=== PATIENT | male | born 1975 | race Caucasian/White ===

== ENCOUNTER → 2017-03-07 | Outpatient (REF) | payer OTHER ==
[~2017-03-07] MED LIST: /ADVA50050 INH; /AUGM875TA OR; /CIPR75TA OR; ACET65TA OR; ALLE25CA OR; ASTELIN NASAL SPRAY; ATEN25TA OR; LISI5TAB OR; OMEP20TA7 OR; SIMV20TA2 OR; TRIC145T19 OR
== END ==
LOC: M SFHCADAM 08:16
PROVIDERS: ATTEND Physician Assistant
DX: R16.0 Hepatomegaly, not elsewhere classified (principal); E78.1 Pure hyperglyceridemia; K76.0 Fatty (change of) liver, not elsewhere classified; I10 Essential (primary) hypertension; E55.9 Vitamin D deficiency, unspecified

== ENCOUNTER → 2017-03-12 | Outpatient (CLI) | payer OTHER ==
[2017-03-12 13:16] LABS: ALBUMIN 3.8 GM/DL (3.2-5.2); ALBUMIN/GLOBULIN RATIO 1.15 (1.00-1.93); ALKALINE PHOSPHATASE 70 U/L (45-117); ALT/SGPT 34 U/L (12-78); ANION GAP 7 MEQ/L (8-16); AST/SGOT 20 U/L (15-37); BILIRUBIN,TOTAL 0.5 MG/DL (0.2-1.0); BLOOD UREA NITROGEN 10 MG/DL (7-18); CALCIUM LEVEL 8.7 MG/DL (8.5-10.1); CARBON DIOXIDE LEVEL 26 MEQ/L (21-32); CHLORIDE LEVEL 108 MEQ/L (98-107); CHOLESTEROL LEVEL 215 MG/DL (<200); CREATININE FOR GFR 0.89 MG/DL (0.70-1.30); GLOMERULAR FILTRATION RATE > 60.0 (>60); GLUCOSE, FASTING 99 MG/DL (70-105); POTASSIUM SERUM 3.8 MEQ/L (3.5-5.1); SODIUM LEVEL 141 MEQ/L (136-145); TOTAL PROTEIN 7.1 GM/DL (6.4-8.2); TRIGLYCERIDES LEVEL 506 MG/DL (<150)
[2017-03-12 13:47] LABS: MEAN CORPUSCULAR HEMOGLOBIN 33.4 pg (27.0-33.0); MEAN CORPUSCULAR HGB CONC 34.3 g/dl (32.0-36.5); MEAN CORPUSCULAR VOLUME 97.6 fl (80.0-96.0); RED CELL DISTRIBUTION WIDTH 12.8 % (11.5-14.5); WHITE BLOOD COUNT 7.2 K/mm3 (4.0-10.0)
== END ==
LOC: M WUC 09:19
PROVIDERS: ATTEND Physician Assistant
DX: E78.1 Pure hyperglyceridemia (principal); R16.0 Hepatomegaly, not elsewhere classified; K76.0 Fatty (change of) liver, not elsewhere classified; I10 Essential (primary) hypertension; E55.9 Vitamin D deficiency, unspecified

== ENCOUNTER → 2017-04-02 | Outpatient (CLI) | payer OTHER ==
--- NOTE | 2017-04-02 09:00 | REP ---
Clinical: Hepatomegaly. Technique: Real time duran scale ultrasound examination using curved array transducer. Findings: The liver is mildly enlarged and demonstrates subtle increased parenchymal echogenicity without focal hepatic lesion or abnormality identified. Liver measures 24.2 x 12.3 x 17.6 cm. The pancreas is incompletely evaluated due to interposed bowel gas but visualized portions appear normal. The gallbladder is normal and without gallstones, wall thickening, or pericholecystic fluid. No biliary ductal dilatation is appreciated and the common bile duct measures 4.6 mm diameter. Right kidney is normal in reniform shape and echogenicity without hydronephrosis and measures 12.8 x 4.5 x 6.5 cm. No ascites. Impression: Mild hepatomegaly and fatty infiltration to the liver without focal hepatic lesion identified.
== END ==
LOC: M WHC 07:48
PROVIDERS: ATTEND Physician Assistant
DX: R16.0 Hepatomegaly, not elsewhere classified (principal); K76.0 Fatty (change of) liver, not elsewhere classified

== ENCOUNTER → 2018-10-07 | Outpatient (CLI) | payer OTHER | LOC: M OUTALCOH 09:26 | DX: F10.20 Alcohol dependence, uncomplicated (principal) ==

== ENCOUNTER 2018-10-19 15:27 | Emergency (ER) | payer OTHER | END 2018-10-19 16:02 | disposition home or self-care (01) | LOC: M ED 15:27 | DX: Z76.0 Encounter for issue of repeat prescription (principal); J44.9 Chronic obstructive pulmonary disease, unspecified; K21.9 Gastro-esophageal reflux disease without esophagitis; F32.9 Major depressive disorder, single episode, unspecified; Z72.0 Tobacco use; Z79.899 Other long term (current) drug therapy | CPT/HCPCS: 99282 ==

== ENCOUNTER → 2018-11-11 | Outpatient (RCR) | payer OTHER ==
[~2018-11-11] MED LIST changes: +FLUO20CA19 PO; +FLUO20CA8 PO
== END ==
LOC: M OUTALCOH 10-16 09:38
PROVIDERS: ATTEND Psychiatry & Neurology Psychiatry
DX: F10.20 Alcohol dependence, uncomplicated (principal); F17.200 Nicotine dependence, unspecified, uncomplicated

== ENCOUNTER 2018-12-11 15:00 | Outpatient (RCR) | payer OTHER | END 2018-12-12 | LOC: M OUTALCOH 15:00 | PROVIDERS: ATTEND Psychiatry & Neurology Psychiatry | DX: F10.20 Alcohol dependence, uncomplicated (principal); F17.200 Nicotine dependence, unspecified, uncomplicated ==

== ENCOUNTER 2019-01-08 10:20 | Outpatient (RCR) | payer OTHER, SELFPAY | END 2019-01-09 | LOC: M OUTALCOH 10:20 | PROVIDERS: ATTEND Psychiatry & Neurology Psychiatry | DX: F10.20 Alcohol dependence, uncomplicated (principal); F17.200 Nicotine dependence, unspecified, uncomplicated ==

== ENCOUNTER → 2019-02-04 | Outpatient (CLI) | payer OTHER ==
[2019-02-04 09:54] LABS: HEMATOCRIT 45.9 % (42.0-52.0); HEMOGLOBIN 15.7 g/dl (13.5-17.5); MEAN CORPUSCULAR HEMOGLOBIN 31.5 pg (27.0-33.0); MEAN CORPUSCULAR HGB CONC 34.2 g/dl (32.0-36.5); MEAN CORPUSCULAR VOLUME 92.2 fl (80.0-96.0); PLATELET COUNT, AUTOMATED 262 10^3/uL (150-450); RED BLOOD COUNT 4.98 10^6/uL (4.30-6.10); WHITE BLOOD COUNT 10.2 10^3/uL (4.0-10.0)
[2019-02-04 10:27] LABS: ALBUMIN 3.8 GM/DL (3.2-5.2); ALT/SGPT 18 U/L (12-78); BILIRUBIN,TOTAL 0.3 MG/DL (0.2-1.0); BLOOD UREA NITROGEN 13 MG/DL (7-18); CALCIUM LEVEL 9.3 MG/DL (8.5-10.1); CARBON DIOXIDE LEVEL 28 MEQ/L (21-32); CHLORIDE LEVEL 108 MEQ/L (98-107); CHOLESTEROL LEVEL 241 MG/DL (<200); CHOLESTEROL RISK RATIO 8.925 (<5); CREATININE FOR GFR 0.92 MG/DL (0.70-1.30); FREE T4 0.87 NG/DL (0.76-1.46); GLOMERULAR FILTRATION RATE > 60.0 (>60); GLUCOSE, FASTING 97 MG/DL (70-100); HDL CHOLESTEROL 27 MG/DL (>40); NON-HDL-C 214 MG/DL; POTASSIUM SERUM 4.7 MEQ/L (3.5-5.1); SODIUM LEVEL 141 MEQ/L (136-145); TOTAL PROTEIN 7.1 GM/DL (6.4-8.2); TRIGLYCERIDES LEVEL 413 MG/DL (<150)
[2019-02-04 10:29] LABS: FOLATE 11.1 NG/ML; VITAMIN B12 LEVEL 400 PG/ML
== END ==
LOC: M WUC 08:03
PROVIDERS: ATTEND Physician Assistant
DX: K21.9 Gastro-esophageal reflux disease without esophagitis (principal); F17.200 Nicotine dependence, unspecified, uncomplicated; E78.2 Mixed hyperlipidemia

== ENCOUNTER 2019-02-05 16:00 | Outpatient (RCR) | payer OTHER, SELFPAY ==
[~2019-02-05 16:00] MED LIST changes: -/ADVA50050 INH; +ADVA1AER2 INH
== END 2019-02-09 ==
LOC: M OUTALCOH 16:00
PROVIDERS: ATTEND Psychiatry & Neurology Psychiatry
DX: F10.20 Alcohol dependence, uncomplicated (principal); F17.200 Nicotine dependence, unspecified, uncomplicated

== ENCOUNTER → 2019-02-06 | Outpatient (REF) | payer OTHER, SELFPAY ==
[2019-02-08 00:07] LABS: ANA (HEP2) Negative (.); Lyme Disease IgG/IgM Antibodie <0.91 ISR (0.00-0.90); Lyme Disease IgM Ab Quantitati <0.80 index (0.00-0.79)
== END ==
LOC: M SFHCADAM 07:59
PROVIDERS: ATTEND Physician Assistant
DX: M65.4 Radial styloid tenosynovitis [de Quervain] (principal)

== ENCOUNTER 2019-03-05 10:50 | Outpatient (RCR) | payer OTHER, SELFPAY | END 2019-03-11 | LOC: M OUTALCOH 10:50 | PROVIDERS: ATTEND Psychiatry & Neurology Psychiatry | DX: F10.20 Alcohol dependence, uncomplicated (principal); F17.200 Nicotine dependence, unspecified, uncomplicated ==

== ENCOUNTER 2019-03-31 14:55 | Outpatient (RCR) | payer OTHER, SELFPAY | END 2019-04-11 | LOC: M OUTALCOH 14:55 | PROVIDERS: ATTEND Psychiatry & Neurology Psychiatry | DX: F10.20 Alcohol dependence, uncomplicated (principal); F17.200 Nicotine dependence, unspecified, uncomplicated ==

== ENCOUNTER 2019-05-05 16:00 | Outpatient (RCR) | payer OTHER, SELFPAY | END 2019-05-11 | LOC: M OUTALCOH 16:00 | PROVIDERS: ATTEND Psychiatry & Neurology Psychiatry | DX: F10.20 Alcohol dependence, uncomplicated (principal); F17.200 Nicotine dependence, unspecified, uncomplicated ==

== ENCOUNTER 2019-06-04 13:53 | Outpatient (RCR) | payer OTHER, SELFPAY | END 2019-06-11 | LOC: M OUTALCOH 13:53 | PROVIDERS: ATTEND Psychiatry & Neurology Psychiatry | DX: F10.20 Alcohol dependence, uncomplicated (principal); F17.200 Nicotine dependence, unspecified, uncomplicated ==

== ENCOUNTER 2019-06-20 13:55 | Outpatient (RCR) | payer OTHER, SELFPAY | END 2019-07-12 | LOC: M OUTALCOH 13:55 | PROVIDERS: ATTEND Psychiatry & Neurology Psychiatry | DX: F10.20 Alcohol dependence, uncomplicated (principal); F17.200 Nicotine dependence, unspecified, uncomplicated ==

== ENCOUNTER 2019-08-01 14:34 | Outpatient (RCR) | payer OTHER, SELFPAY | END 2019-08-11 | LOC: M OUTALCOH 14:34 | PROVIDERS: ATTEND Psychiatry & Neurology Psychiatry | DX: F10.20 Alcohol dependence, uncomplicated (principal); F17.200 Nicotine dependence, unspecified, uncomplicated ==

== ENCOUNTER 2019-09-03 12:52 | Outpatient (RCR) | payer OTHER, SELFPAY | END 2019-09-11 | LOC: M OUTALCOH 12:52 | PROVIDERS: ATTEND Psychiatry & Neurology Psychiatry | DX: F10.20 Alcohol dependence, uncomplicated (principal); F17.200 Nicotine dependence, unspecified, uncomplicated ==

== ENCOUNTER 2019-10-15 13:05 | Outpatient (RCR) | payer OTHER, SELFPAY ==
[~2019-10-15 13:05] MED LIST changes: +FLUO20CA20 PO; -FLUO20CA8 PO
== END 2019-11-11 ==
LOC: M OUTALCOH 13:05
PROVIDERS: ATTEND Psychiatry & Neurology Psychiatry
DX: F10.20 Alcohol dependence, uncomplicated (principal); F17.200 Nicotine dependence, unspecified, uncomplicated

== ENCOUNTER 2019-12-02 11:00 | Outpatient (RCR) | payer OTHER, SELFPAY ==
[~2019-12-02 11:00] MED LIST changes: -FLUO20CA19 PO; +FLUO20CA22 PO
== END 2019-12-12 ==
LOC: M OUTALCOH 11:00
PROVIDERS: ATTEND Psychiatry & Neurology Psychiatry
DX: F10.20 Alcohol dependence, uncomplicated (principal); F17.200 Nicotine dependence, unspecified, uncomplicated

== ENCOUNTER → 2020-09-23 | Outpatient (CLI) | payer MEDICAID, OTHER, SELFPAY ==
[~2020-09-23] MED LIST changes: +IBUP-1114 PO; +OMEP40CA97 PO
== END ==
LOC: M LABSMTC 11:50
PROVIDERS: ATTEND Anesthesiology
DX: Z01.812 Encounter for preprocedural laboratory examination (principal); Z20.828 Contact with and (suspected) exposure to other viral communicable diseases

== ENCOUNTER → 2021-04-20 | Outpatient (REF) | payer MEDICAID, OTHER ==
[2021-04-20 16:25] LABS: APPEARANCE, URINE HAZY (CLEAR); BACTERIA, URINE AUTO 2+ (NEGATIVE); BILIRUBIN, URINE AUTO NEGATIVE (NEGATIVE); BLOOD, URINE BLOOD 1+ (NEGATIVE); COLOR, URINE YELLOW (YELLOW); GLUCOSE, URINE (UA) AUTO NEGATIVE (NEGATIVE); KETONE, URINE AUTO NEGATIVE (NEGATIVE); LEUKOCYTE ESTERASE, URINE AUTO 3+ (NEGATIVE); NITRITE, URINE AUTO NEGATIVE (NEGATIVE); PROTEIN, URINE AUTO NEGATIVE (NEGATIVE); RBC, URINE AUTO 8 /HPF (0-3); SPECIFIC GRAVITY URINE AUTO 1.016 (1.002-1.035); SQUAMOUS EPITHELIAL CELL UR AU 0 /HPF (0-6); UROBILINOGEN, URINE AUTO 0.2 mg/dL (0.0-2.0); WBC, URINE AUTO 79 /HPF (0-3)
[2021-04-20 16:31] LABS: BASO # 0.1 10^3/uL (0.0-0.2); BASO % 0.7 % (0.0-1.0); EOS # 0.2 10^3/uL (0.0-0.5); EOS % 2.1 % (0.0-3.0); HEMATOCRIT 52.9 % (42.0-52.0); HEMOGLOBIN 17.2 g/dl (13.5-17.5); LYMPH # 4.4 10^3/uL (1.5-5.0); LYMPH % 40.1 % (24.0-44.0); MEAN CORPUSCULAR HEMOGLOBIN 29.2 pg (27.0-33.0); MEAN CORPUSCULAR HGB CONC 32.5 g/dl (32.0-36.5); MEAN CORPUSCULAR VOLUME 89.8 fl (80.0-96.0); MONO # 0.8 10^3/uL (0.0-0.8); MONO % 7.1 % (2.0-8.0); NEUTROPHILS # 5.4 10^3/uL (1.5-8.5); NEUTROPHILS % 49.2 % (36.0-66.0); PLATELET COUNT, AUTOMATED 293 10^3/uL (150-450); RED BLOOD COUNT 5.89 10^6/uL (4.30-6.10); WHITE BLOOD COUNT 10.9 10^3/uL (4.0-10.0)
[2021-04-20 17:28] LABS: ALBUMIN 3.8 GM/DL (3.2-5.2); ALT/SGPT 30 U/L (12-78); BILIRUBIN,TOTAL 0.3 MG/DL (0.2-1.0); BLOOD UREA NITROGEN 15 MG/DL (7-18); CALCIUM LEVEL 8.7 MG/DL (8.5-10.1); CARBON DIOXIDE LEVEL 28 MEQ/L (21-32); CHLORIDE LEVEL 107 MEQ/L (98-107); CHOLESTEROL LEVEL 195 MG/DL (<200); CREATININE FOR GFR 0.82 MG/DL (0.70-1.30); GLOMERULAR FILTRATION RATE > 60.0 (>60); GLUCOSE, FASTING 113 MG/DL (70-100); HDL CHOLESTEROL 25 MG/DL (>40); NON-HDL-C 170 MG/DL; POTASSIUM SERUM 4.2 MEQ/L (3.5-5.1); SODIUM LEVEL 140 MEQ/L (136-145); TOTAL PROTEIN 7.7 GM/DL (6.4-8.2); TRIGLYCERIDES LEVEL 418 MG/DL (<150)
[2021-04-20 17:32] LABS: VITAMIN B12 LEVEL 800 PG/ML
[2021-04-20 17:45] LABS: FOLATE 9.7 NG/ML
[2021-04-20 18:12] LABS: HIV 1&2 SCREEN CENTAUR NEGATIVE (NEGATIVE)
== END ==
LOC: M SFHCADAM 14:10
PROVIDERS: ATTEND Physician Assistant
DX: F10.21 Alcohol dependence, in remission (principal); D45 Polycythemia vera; I10 Essential (primary) hypertension; R30.0 Dysuria; Z11.3 Encounter for screening for infections with a predominantly sexual mode of transmission; E78.2 Mixed hyperlipidemia; K21.9 Gastro-esophageal reflux disease without esophagitis

== ENCOUNTER → 2021-05-19 | Outpatient (REF) | payer OTHER ==
[~2021-05-19] MED LIST changes: +OMEP40CA4 PO; -OMEP40CA97 PO
[2021-05-19 20:05] LABS: APPEARANCE, URINE CLOUDY (CLEAR); BACTERIA, URINE AUTO NEGATIVE (NEGATIVE); BILIRUBIN, URINE AUTO NEGATIVE (NEGATIVE); BLOOD, URINE BLOOD 2+ (NEGATIVE); COLOR, URINE YELLOW (YELLOW); GLUCOSE, URINE (UA) AUTO NEGATIVE (NEGATIVE); KETONE, URINE AUTO NEGATIVE (NEGATIVE); LEUKOCYTE ESTERASE, URINE AUTO 3+ (NEGATIVE); MUCUS, URINE SMALL (NEGATIVE); NITRITE, URINE AUTO NEGATIVE (NEGATIVE); PROTEIN, URINE AUTO 1+ mg/dL (NEGATIVE); RBC, URINE AUTO 78 /HPF (0-3); SPECIFIC GRAVITY URINE AUTO 1.023 (1.002-1.035); SQUAMOUS EPITHELIAL CELL UR AU 0 /HPF (0-6); UROBILINOGEN, URINE AUTO 0.2 mg/dL (0.0-2.0); WBC, URINE AUTO TNTC /HPF (0-3)
== END ==
LOC: M SMT 17:00
PROVIDERS: ATTEND Urology
DX: N30.00 Acute cystitis without hematuria (principal)

== ENCOUNTER → 2021-06-01 | Outpatient (CLI) | payer OTHER ==
--- NOTE | 2021-06-01 15:45 | REP ---
INDICATION: ACUTE CYSTITIS WITHOUT HEMATURIA. COMPARISON: Comparison CT study abdomen and pelvis June 24, 2013.. TECHNIQUE: Helical scanning is acquired and 3 mm axial images re-formatted. Coronal and sagittal MPR images are generated. The CT contrast enhancement dose is 100 mL of intravenous Isovue 370. FINDINGS: Preliminary digital pan devulcanizer radiograph shows an unremarkable bowel gas pattern. The lung bases are clear on axial CT images. There is an old healed rib fracture on the right posteriorly. There is mild diffuse fatty infiltration of the liver. No focal liver lesion is seen. Some fat sparing is seen near the gallbladder. Gallbladder is otherwise unremarkable. No pancreatic abnormality is seen. Normal adrenal glands are observed bilaterally. The kidneys enhance symmetrically and are morphologically intact on dual phase post-contrast images. No renal mass or hydronephrosis is seen. No intrarenal calculus is observed. A normal appendix is noted retrocecal in position. There is left colonic diverticulosis without CT evidence of diverticulitis. There is a small air bubble in the urinary bladder consistent with recent instrumentation. Urinary bladder is otherwise unremarkable. Prostate seminal vesicles intact is no abdominal wall defect is seen. IMPRESSION: Fatty infiltration of the liver. Left colonic diverticulosis without CT evidence of diverticulitis. There is a small air bubble in the urinary bladder consistent with recent instrumentation. Otherwise no urinary tract abnormality. <Electronically signed by Luis Angel Harrell > 06/01/21 [id number]
== END ==
LOC: M PLAIMG 14:18
PROVIDERS: ATTEND Urology
DX: N30.00 Acute cystitis without hematuria (principal); K76.0 Fatty (change of) liver, not elsewhere classified; K57.30 Diverticulosis of large intestine without perforation or abscess without bleeding

== ENCOUNTER → 2021-06-27 | Outpatient (REF) | payer OTHER ==
[2021-06-27 18:54] LABS: APPEARANCE, URINE CLOUDY (CLEAR); BACTERIA, URINE AUTO NEGATIVE (NEGATIVE); BILIRUBIN, URINE AUTO NEGATIVE (NEGATIVE); BLOOD, URINE BLOOD 2+ (NEGATIVE); CALCIUM OXALATE CRYSTALS SMALL; COLOR, URINE YELLOW (YELLOW); GLUCOSE, URINE (UA) AUTO NEGATIVE (NEGATIVE); KETONE, URINE AUTO NEGATIVE (NEGATIVE); LEUKOCYTE ESTERASE, URINE AUTO 3+ (NEGATIVE); MUCUS, URINE SMALL (NEGATIVE); NITRITE, URINE AUTO NEGATIVE (NEGATIVE); PROTEIN, URINE AUTO 1+ mg/dL (NEGATIVE); RBC, URINE AUTO 19 /HPF (0-3); SPECIFIC GRAVITY URINE AUTO 1.025 (1.002-1.035); SQUAMOUS EPITHELIAL CELL UR AU 1 /HPF (0-6); UROBILINOGEN, URINE AUTO 0.2 mg/dL (0.0-2.0); WBC, URINE AUTO TNTC /HPF (0-3)
== END ==
LOC: M SMT 17:00
PROVIDERS: ATTEND Urology
DX: R31.29 Other microscopic hematuria (principal)

== ENCOUNTER → 2021-07-16 | Outpatient (CLI) | payer OTHER | LOC: M LABSMTC 09:29 | PROVIDERS: ATTEND Anesthesiology | DX: Z01.812 Encounter for preprocedural laboratory examination (principal); Z20.822 Contact with and (suspected) exposure to COVID-19 ==

== ENCOUNTER 2021-07-20 09:27 | Day surgery (SDC) | payer OTHER ==
[~2021-07-20] VITALS: Ht 172.7 cm; Wt 143.3 kg
[~2021-07-20 09:27] MED LIST changes: +NS 1,000 ML IV ONE
[2021-07-20] MEDS ORDERED: propofoL 200 MG/20 ML VIAL As Ordered ONE ×2 (10:57→11:01)
[2021-07-20] MEDS ORDERED: LIDOCAINE 2% 100MG/5ML SDV (FOR ANES.) As Ordered ONE (10:58)
--- NOTE | 2021-07-20 11:22 | ROOR ---
Patient Name: aDmi Escobedo Procedure Date: 07/20/2021 10:45 AM Date of : 1975 Age: 45 Room: [facility] Gender: Male Note Status: Finalized Procedure: Colonoscopy Indications: Colovesical fistula Providers: Sarabjit Julien MD Referring MD: Ji Hou MD Requesting Provider: Medicines: Monitored Anesthesia Care Complications: No immediate complications. Procedure: Pre-Anesthesia Assessment: - Prior to the procedure, a History and Physical was performed, and patient medications and allergies were reviewed. The patient is competent. The risks and benefits of the procedure and the sedation options and risks were discussed with the patient. All questions were answered and informed consent was obtained. Patient identification and proposed procedure were verified by the physician, the nurse and the tong hooker in the procedure room. Mental Status Examination: alert and oriented. Airway Examination: normal oropharyngeal airway and neck mobility. Prophylactic Antibiotics: The patient does not require prophylactic antibiotics. Prior Anticoagulants: The patient has taken no previous anticoagulant or antiplatelet agents. ASA Grade Assessment: III - A patient with severe systemic disease. After reviewing the risks and benefits, the patient was deemed in satisfactory condition to undergo the procedure. The anesthesia plan was to use monitored anesthesia care (MAC). Immediately prior to administration of medications, the patient was re-assessed for adequacy to receive sedatives. The heart rate, respiratory rate, oxygen saturations, blood pressure, adequacy of pulmonary ventilation, and response to care were monitored throughout the procedure. The physical status of the patient was re-assessed after the procedure. The Colonoscope was introduced through the anus with the intention of advancing to the cecum. The scope was advanced to the sigmoid colon before the procedure was aborted. Medications were given. The colonoscopy was unusually difficult due to bowel stenosis. The patient tolerated the procedure well. The quality of the bowel preparation was good. Findings: The perianal and digital rectal examinations were normal. Multiple medium-mouthed diverticula were found in the sigmoid colon. A benign-appearing, intrinsic severe stenosis measuring of unknown length was found at 40 cm proximal to the anus and was non-traversed. Impression: - Diverticulosis in the sigmoid colon. - Stricture at 40 cm proximal to the anus. - No specimens collected. Recommendation: - Perform a barium enema today. 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 All rights reserved. The codes documented in this report are preliminary and upon change management administrator review may be revised to meet current compliance requirements. Sarabjit Julien MD Sarabjit Julien MD 07/20/2021 11:22:17 AM Electronically signed by Sarabjit Julien MD Number of Addenda: 0 Note Initiated On: 07/20/2021 10:45 AM Estimated Blood Loss: Estimated blood loss: none.
[2021-07-20 11:40] VITALS: BP 167/94
[2021-07-20] MEDS ORDERED: GASTROGRAFIN SOLUTION 30ML (Q9963) As Ordered ONE ×2 (13:39→13:52)
== END 2021-07-20 13:32 | disposition home or self-care (01) ==
LOC: M OPP 09:27
PROVIDERS: ATTEND Surgery
DX: K56.699 Other intestinal obstruction unspecified as to partial versus complete obstruction (principal); N32.1 Vesicointestinal fistula; K57.30 Diverticulosis of large intestine without perforation or abscess without bleeding; R10.84 Generalized abdominal pain; F17.210 Nicotine dependence, cigarettes, uncomplicated; K76.0 Fatty (change of) liver, not elsewhere classified; Z79.899 Other long term (current) drug therapy
CPT/HCPCS: 45378; Q9963

== ENCOUNTER → 2021-08-09 | Outpatient (CLI) | payer OTHER ==
--- NOTE | 2021-08-08 10:22 | REP ---
INDICATION: DVRTCLOS OF LG INT W/O PERFORATION / ABSCESS. COMPARISON: None. FINDINGS: KUB shows the intestinal gas pattern to be nonspecific. The organ silhouettes insofar as delineated are unremarkable. There is no evidence of free intraperitoneal air. The stool pattern is unremarkable. IMPRESSION: Nonspecific. <Electronically signed by Josue Hutchinson > 08/08/21 [id number]
[~2021-08-09] MED LIST changes: +LIQUID POLIBAR PLUS 105% w/v 750ML BTL As Ordered ONE; -NS 1,000 ML IV ONE
--- NOTE | 2021-08-09 17:43 | REP ---
INDICATION: DVRTCLOS OF LG INT W/O PERFORATION/ABSCESS. COMPARISON: None TECHNIQUE: The procedure was performed by Georgiana Keating RUST, under the direct supervision of Dr. Harrell. The images were reviewed with Dr. Dr. Harrell. Liquid barium was instilled into the colon in retrograde flow in order to perform a single contrast barium enema. FINDINGS: The sole tier film shows no organomegaly, or pathological masses. The intestinal gas pattern is unremarkable. The colon is normal in position and contour. Contrast is visualized in the bladder confirming the presence of a colovesical fistula. There is diverticulosis of the sigmoid colon with mild luminal narrowing, without any mass like findings. There is free flow of contrast to the cecum. There is diverticula of the ascending colon. The colonic mucosal pattern is normal in course and caliber. There is no annular constricting lesion identified. There are no polypoid masses identified. The appendix is visualized. IMPRESSION: 1. Contrast is visualized within the bladder confirming a colovesical fistula. 2. Sigmoid diverticulosis with mild luminal narrowing. 3. Diverticula of the ascending colon. 0.5 minutes of fluoroscopy time was utilized for this procedure. Some fluoroscopic images are performed with last image hold technology. These images require no additional radiation <Electronically signed by Georgiana Keating > 08/09/21 [id number] <Electronically signed by Luis Angel Harrell > 08/09/21 [id number]
== END ==
LOC: M RAD 08-08 09:41
PROVIDERS: ATTEND Surgery
DX: K57.30 Diverticulosis of large intestine without perforation or abscess without bleeding (principal)

== ENCOUNTER → 2021-08-30 | Outpatient (REF) | payer OTHER ==
[~2021-08-30] MED LIST changes: -LIQUID POLIBAR PLUS 105% w/v 750ML BTL As Ordered ONE
[2021-08-30 17:43] LABS: BASO # 0.1 10^3/uL (0.0-0.2); BASO % 0.7 % (0.0-1.0); EOS # 0.2 10^3/uL (0.0-0.5); EOS % 2.1 % (0.0-3.0); HEMATOCRIT 51.7 % (42.0-52.0); HEMOGLOBIN 17.1 g/dl (13.5-17.5); LYMPH % 40.4 % (24.0-44.0); MEAN CORPUSCULAR HEMOGLOBIN 29.8 pg (27.0-33.0); MEAN CORPUSCULAR HGB CONC 33.1 g/dl (32.0-36.5); MEAN CORPUSCULAR VOLUME 90.1 fl (80.0-96.0); MONO # 0.7 10^3/uL (0.0-0.8); MONO % 7.2 % (2.0-8.0); NEUTROPHILS # 4.8 10^3/uL (1.5-8.5); NEUTROPHILS % 49.1 % (36.0-66.0); PLATELET COUNT, AUTOMATED 284 10^3/uL (150-450); RED BLOOD COUNT 5.74 10^6/uL (4.30-6.10); WHITE BLOOD COUNT 9.8 10^3/uL (4.0-10.0)
[2021-08-30 18:07] LABS: APPEARANCE, URINE CLOUDY (CLEAR); BACTERIA, URINE AUTO 1+ (NEGATIVE); BILIRUBIN, URINE AUTO NEGATIVE (NEGATIVE); BLOOD, URINE BLOOD 1+ (NEGATIVE); COLOR, URINE YELLOW (YELLOW); GLUCOSE, URINE (UA) AUTO NEGATIVE (NEGATIVE); KETONE, URINE AUTO NEGATIVE (NEGATIVE); LEUKOCYTE ESTERASE, URINE AUTO 3+ (NEGATIVE); MUCUS, URINE SMALL (NEGATIVE); NITRITE, URINE AUTO NEGATIVE (NEGATIVE); PROTEIN, URINE AUTO 1+ mg/dL (NEGATIVE); RBC, URINE AUTO 19 /HPF (0-3); SPECIFIC GRAVITY URINE AUTO 1.024 (1.002-1.035); SQUAMOUS EPITHELIAL CELL UR AU 0 /HPF (0-6); UROBILINOGEN, URINE AUTO 0.2 mg/dL (0.0-2.0); WBC, URINE AUTO TNTC /HPF (0-3)
[2021-08-30 18:08] LABS: ALBUMIN 3.8 GM/DL (3.2-5.2); ALT/SGPT 22 U/L (12-78); BILIRUBIN,TOTAL 0.3 MG/DL (0.2-1.0); BLOOD UREA NITROGEN 15 MG/DL (7-18); CARBON DIOXIDE LEVEL 30 MEQ/L (21-32); CHLORIDE LEVEL 106 MEQ/L (98-107); CREATININE FOR GFR 0.84 MG/DL (0.70-1.30); GLOMERULAR FILTRATION RATE > 60.0 (>60); GLUCOSE, FASTING 74 MG/DL (70-100); POTASSIUM SERUM 4.4 MEQ/L (3.5-5.1); SODIUM LEVEL 141 MEQ/L (136-145)
== END ==
LOC: M SFHCADAM 11:42
PROVIDERS: ATTEND Physician Assistant
DX: Z01.818 Encounter for other preprocedural examination (principal); R30.0 Dysuria; N32.1 Vesicointestinal fistula

== ENCOUNTER → 2021-09-08 | Outpatient (CLI) | payer OTHER | LOC: M LABSMTC 09:36 | PROVIDERS: ATTEND Anesthesiology | DX: Z01.812 Encounter for preprocedural laboratory examination (principal); Z20.822 Contact with and (suspected) exposure to COVID-19 ==

== ENCOUNTER 2021-09-13 06:07 | Inpatient (IN) | payer OTHER ==
[~2021-09-13] VITALS: Ht 170.2 cm; Wt 143.3 kg
[~2021-09-13 06:07] MED LIST changes: +ALVIMOPAN 12 MG CAPSULE (ENTEREG) PO ONE; +ENOXAPARIN 40MG/0.4ML SYRINGE (J1650 PER 10MG) SC ONE; +FLUO-96 PO; -FLUO20CA20 PO; +LIDOCAINE 1% MDV 20ML VIAL SQ PRN; +LR 1,000 ML IV ONE; +cefoTEtan DISODIUM 2 GM in D5W MINI-BAG PLUS 50 ML IV ONE
[2021-09-13] MEDS ORDERED: BUPIVACAINE HCL 0.25% 30ML VIAL As Ordered ONE (07:16)
[2021-09-13] MEDS ORDERED: ONDANSETRON 4MG/2ML VIAL As Ordered ONE (07:21)
[2021-09-13] MEDS ORDERED: LACRILUBE (AKWA TEARS) OPHTH OINT 3.5 GM As Ordered ONE (07:21)
[2021-09-13] MEDS ORDERED: MIDAZOLAM INJ 2MG/2ML VIAL (J2250 PER 1MG) As Ordered ONE (07:21)
[2021-09-13] MEDS ORDERED: ROCURONIUM BROMIDE 50 MG/5 ML VIAL As Ordered ONE ×3 (07:21→08:34)
[2021-09-13] MEDS ORDERED: propofoL 200 MG/20 ML VIAL As Ordered ONE ×2 (07:21→12:59)
[2021-09-13] MEDS ORDERED: fentaNYL 100 MCG/2 ML INJECTION As Ordered ONE (07:21)
[2021-09-13] MEDS ORDERED: KETOROLAC 60MG 2ML VIAL As Ordered ONE (07:21)
[2021-09-13] MEDS ORDERED: HYDROmorphone HCL 2MG/ML 1ML VIAL As Ordered ONE (07:21)
[2021-09-13] MEDS ORDERED: dexameTHASONE 4 MG/ML 1ML VIAL (J1100 PER 1MG) As Ordered ONE (07:21)
[2021-09-13] MEDS ORDERED: LIDOCAINE 2% 100MG/5ML SDV (FOR ANES.) As Ordered ONE (07:21)
[2021-09-13] MEDS ORDERED: GLYCOPYRROLATE INJ 0.2 MG/ML 2 ML VIAL As Ordered ONE (08:02)
[2021-09-13] MEDS ORDERED: SUGAMMADEX SODIUM 500 MG/5 ML VIAL (BRIDION) As Ordered ONE (08:22)
[2021-09-13] MEDS ORDERED: ACETAMINOPHEN 1000MG 100ML IV BTL (OFIRMEV) (J0131 PER 10MG) As Ordered ONE ×2 (08:22→14:10)
[2021-09-13] MEDS ORDERED: PHENYLephrine 500MCG 5ML (100MCG/ML) SYRINGE As Ordered ONE (08:24)
[2021-09-13] MEDS ORDERED: ESMOLOL INJ 100MG/10ML VIAL As Ordered ONE (13:02)
[2021-09-13] MEDS ORDERED: LR 1,000 ML IV SCH ×2 (13:15→16:15)
[2021-09-13] MEDS ORDERED: oxyCODONE 5MG TAB PO PRN ×3 (13:15→16:15)
[2021-09-13] MEDS ORDERED: fentaNYL 100 MCG/2 ML INJECTION IV PRN ×2 (13:15→16:15)
[2021-09-13] MEDS ORDERED: ONDANSETRON 4MG/2ML VIAL IV PRN ×3 (13:15→16:15)
[2021-09-13] MEDS ORDERED: MORPHINE 2 MG/ML 1ML VIAL (J2270) IV PRN ×3 (13:15→16:15)
[2021-09-13] MEDS ORDERED: ACETAMINOPHEN TAB 650MG DOSE (2X325MG) PO PRN (13:20)
[2021-09-13] MEDS ORDERED: METOCLOPRAMIDE INJ 10MG/2ML VIAL (J2765 PER 1) IV PRN (13:20)
[2021-09-13 16:00] VITALS: BP 144/86
[2021-09-13 16:30] VITALS: BP 118/74
[2021-09-13] MEDS: LR 1,000 ML IV SCH ×2 (16:41→22:00)
[2021-09-13 17:30] VITALS: BP 121/75
[2021-09-13] MEDS: IBUPROFEN 400MG TAB PO SCH (18:10)
[2021-09-13 18:30] VITALS: BP 127/78
[2021-09-13] MEDS ORDERED: cefoTEtan DISODIUM 2 GM in D5W MINI-BAG PLUS 50 ML IV ONE (19:30)
[2021-09-13 20:30] VITALS: BP 127/78
[2021-09-13] MEDS ORDERED: ALVIMOPAN 12 MG CAPSULE (ENTEREG) PO SCH (21:00)
[2021-09-13 23:45] VITALS: O2SAT 94
[2021-09-14] MEDS: IBUPROFEN 400MG TAB PO SCH ×5 (00:08→23:07)
[2021-09-14] MEDS: LR 1,000 ML IV SCH (00:10)
[2021-09-14 06:00] VITALS: BP 122/77
[2021-09-14 06:48] LABS: BASO % 0.2 % (0.0-1.0); EOS % 0.1 % (0.0-3.0); HEMATOCRIT 43.9 % (42.0-52.0); HEMOGLOBIN 14.4 g/dl (13.5-17.5); LYMPH # 2.9 10^3/uL (1.5-5.0); LYMPH % 23.8 % (24.0-44.0); MEAN CORPUSCULAR HEMOGLOBIN 29.5 pg (27.0-33.0); MEAN CORPUSCULAR HGB CONC 32.8 g/dl (32.0-36.5); MONO # 1.1 10^3/uL (0.0-0.8); MONO % 8.9 % (2.0-8.0); NEUTROPHILS % 66.6 % (36.0-66.0); PLATELET COUNT, AUTOMATED 259 10^3/uL (150-450); RED BLOOD COUNT 4.88 10^6/uL (4.30-6.10); WHITE BLOOD COUNT 12.1 10^3/uL (4.0-10.0)
[2021-09-14 07:14] LABS: BLOOD UREA NITROGEN 7 MG/DL (7-18); CALCIUM LEVEL 8.5 MG/DL (8.5-10.1); CARBON DIOXIDE LEVEL 30 MEQ/L (21-32); CHLORIDE LEVEL 108 MEQ/L (98-107); CREATININE FOR GFR 0.91 MG/DL (0.70-1.30); GLOMERULAR FILTRATION RATE > 60.0 (>60); GLUCOSE, FASTING 111 MG/DL (70-100); POTASSIUM SERUM 4.2 MEQ/L (3.5-5.1); SODIUM LEVEL 140 MEQ/L (136-145)
[2021-09-14 09:06] VITALS: O2SAT 94
[2021-09-14] MEDS: ENOXAPARIN 40MG/0.4ML SYRINGE (J1650 PER 10MG) SC SCH (09:06)
[2021-09-14] MEDS: OMEPRAZOLE 20MG CAP PO SCH (09:06)
[2021-09-14 10:40] VITALS: BP 119/70
[2021-09-14 12:56] VITALS: BP 120/70
[2021-09-14 22:00] VITALS: BP 145/91
[2021-09-15 01:20] VITALS: O2SAT 3
[2021-09-15] MEDS: IBUPROFEN 400MG TAB PO SCH ×4 (05:28→23:54)
[2021-09-15 06:00] VITALS: BP 118/79
[2021-09-15] MEDS: OMEPRAZOLE 20MG CAP PO SCH (08:39)
[2021-09-15] MEDS: ENOXAPARIN 40MG/0.4ML SYRINGE (J1650 PER 10MG) SC SCH (08:39)
[2021-09-15 09:00] VITALS: O2SAT 95
[2021-09-15 14:00] VITALS: BP 139/80
[2021-09-15 22:00] VITALS: BP 138/78
[2021-09-15 23:21] VITALS: O2SAT 94
[2021-09-16 06:00] VITALS: BP 133/71
[2021-09-16] MEDS: IBUPROFEN 400MG TAB PO SCH ×4 (06:04→23:28)
[2021-09-16] MEDS: ENOXAPARIN 40MG/0.4ML SYRINGE (J1650 PER 10MG) SC SCH (08:07)
[2021-09-16] MEDS: OMEPRAZOLE 20MG CAP PO SCH (08:07)
[2021-09-16 14:00] VITALS: BP 109/49
[2021-09-16 22:00] VITALS: BP 145/80
[2021-09-17] MEDS: IBUPROFEN 400MG TAB PO SCH (05:11)
[2021-09-17 06:00] VITALS: BP 154/91
[2021-09-17] MEDS ORDERED: IBUP-1114 PO (08:33)
[2021-09-17] MEDS: OMEPRAZOLE 20MG CAP PO SCH (09:00)
[2021-09-17] MEDS: ENOXAPARIN 40MG/0.4ML SYRINGE (J1650 PER 10MG) SC SCH (09:00)
== END 2021-09-17 09:00 | disposition home or self-care (01) | DRG 950 ==
LOC: M OR 06:07 → M MS5PR 15:45
PROVIDERS: ADMIT Surgery; ATTEND Surgery
PROC: 8E0W4CZ Robotic Assisted Procedure of Trunk Region, Percutaneous Endoscopic Approach (ICD-10-PCS; 2021-09-13)
PROC: 0DTN4ZZ Resection of Sigmoid Colon, Percutaneous Endoscopic Approach (ICD-10-PCS; principal; 2021-09-13 07:30)
DX: N32.1 Vesicointestinal fistula (principal); Z68.42 Body mass index [BMI] 45.0-49.9, adult; E66.01 Morbid (severe) obesity due to excess calories; E78.00 Pure hypercholesterolemia, unspecified; F41.9 Anxiety disorder, unspecified; F32.A Depression, unspecified; G47.30 Sleep apnea, unspecified; F17.210 Nicotine dependence, cigarettes, uncomplicated; F10.11 Alcohol abuse, in remission; Z79.899 Other long term (current) drug therapy

== ENCOUNTER → 2022-01-29 | Outpatient (CLI) | payer OTHER ==
[~2022-01-29] MED LIST changes: -ALVIMOPAN 12 MG CAPSULE (ENTEREG) PO ONE; -ENOXAPARIN 40MG/0.4ML SYRINGE (J1650 PER 10MG) SC ONE; -LIDOCAINE 1% MDV 20ML VIAL SQ PRN; -LR 1,000 ML IV ONE; -cefoTEtan DISODIUM 2 GM in D5W MINI-BAG PLUS 50 ML IV ONE
[2022-01-29 09:54] LABS: ALBUMIN 3.7 GM/DL (3.2-5.2); ALT/SGPT 31 U/L (12-78); BILIRUBIN,TOTAL 0.3 MG/DL (0.2-1.0); BLOOD UREA NITROGEN 13 MG/DL (7-18); CALCIUM LEVEL 8.7 MG/DL (8.5-10.1); CARBON DIOXIDE LEVEL 30 MEQ/L (21-32); CHLORIDE LEVEL 108 MEQ/L (98-107); CHOLESTEROL LEVEL 166 MG/DL (<200); CHOLESTEROL RISK RATIO 5.928 (<5); CREATININE FOR GFR 0.85 MG/DL (0.70-1.30); GLOMERULAR FILTRATION RATE > 60.0 (>60); GLUCOSE, FASTING 98 MG/DL (70-100); HDL CHOLESTEROL 28 MG/DL (>40); LDL CHOLESTEROL 93 MG/DL (<100); NON-HDL-C 138 MG/DL; POTASSIUM SERUM 4.4 MEQ/L (3.5-5.1); SODIUM LEVEL 141 MEQ/L (136-145); TRIGLYCERIDES LEVEL 226 MG/DL (<150)
== END ==
LOC: M LAB 08:40
PROVIDERS: ATTEND Physician Assistant
DX: E78.2 Mixed hyperlipidemia (principal)

== ENCOUNTER → 2023-03-30 | Outpatient (CLI) | payer OTHER ==
[2023-03-30 10:18] LABS: BASO # 0.1 10^3/uL (0.0-0.2); BASO % 0.7 % (0.0-1.0); EOS # 0.2 10^3/uL (0.0-0.5); HEMATOCRIT 50.4 % (42.0-52.0); HEMOGLOBIN 16.8 g/dl (13.5-17.5); LYMPH # 3.5 10^3/uL (1.5-5.0); LYMPH % 40.7 % (24.0-44.0); MEAN CORPUSCULAR HEMOGLOBIN 29.9 pg (27.0-33.0); MEAN CORPUSCULAR HGB CONC 33.3 g/dl (32.0-36.5); MEAN CORPUSCULAR VOLUME 89.7 fl (80.0-96.0); MONO # 0.5 10^3/uL (0.0-0.8); MONO % 5.7 % (2.0-8.0); NEUTROPHILS # 4.4 10^3/uL (1.5-8.5); NEUTROPHILS % 50.7 % (36.0-66.0); PLATELET COUNT, AUTOMATED 207 10^3/uL (150-450); RED BLOOD COUNT 5.62 10^6/uL (4.30-6.10); WHITE BLOOD COUNT 8.6 10^3/uL (4.0-10.0)
[2023-03-30 10:32] LABS: ALBUMIN 3.7 G/DL (3.2-5.2); ALKALINE PHOSPHATASE 69 U/L (46-116); ALT/SGPT 20 U/L (7.0-40); AST/SGOT 17 U/L (<34); BILIRUBIN,TOTAL 0.5 MG/DL (0.3-1.2); BLOOD UREA NITROGEN 10 MG/DL (9-23); CALCIUM LEVEL 8.7 MG/DL (8.5-10.1); CARBON DIOXIDE LEVEL 25 MMOL/L (20-31); CHLORIDE LEVEL 108 MMOL/L (98-107); CHOLESTEROL LEVEL 179 MG/DL (<200); CHOLESTEROL RISK RATIO 6.41 (<5); CREATININE FOR GFR 0.67 MG/DL (0.70-1.30); GLOMERULAR FILTRATION RATE > 60.0 (>60); GLUCOSE, FASTING 104 MG/DL (60-100); HDL CHOLESTEROL 27.9 MG/DL (>40); LDL CHOLESTEROL 91.1 MG/DL (<100); NON-HDL-C 151.1 MG/DL; POTASSIUM SERUM 3.8 MMOL/L (3.5-5.1); SODIUM LEVEL 140 MMOL/L (136-145); TOTAL PROTEIN 6.9 G/DL (5.7-8.2); TRIGLYCERIDES LEVEL 300 MG/DL (<150)
[2023-03-30 10:34] LABS: FREE T4 0.88 NG/DL (0.89-1.76); THYROID STIMULATING HORMONE 1.997 uIU/ML (0.55-4.78)
== END ==
LOC: M WUC 08:05
PROVIDERS: ATTEND Physician Assistant
DX: R60.0 Localized edema (principal); F17.210 Nicotine dependence, cigarettes, uncomplicated; E78.5 Hyperlipidemia, unspecified; G47.33 Obstructive sleep apnea (adult) (pediatric); Z13.1 Encounter for screening for diabetes mellitus

== ENCOUNTER → 2024-01-21 | Outpatient (CLI) | payer OTHER ==
[2024-01-21 12:27] LABS: HEMATOCRIT 52.3 % (42.0-52.0); HEMOGLOBIN 17.9 g/dl (13.5-17.5); MEAN CORPUSCULAR HEMOGLOBIN 30.9 pg (27.0-33.0); MEAN CORPUSCULAR HGB CONC 34.2 g/dl (32.0-36.5); MEAN CORPUSCULAR VOLUME 90.2 fl (80.0-96.0); PLATELET COUNT, AUTOMATED 224 10^3/uL (150-450); WHITE BLOOD COUNT 10.4 10^3/uL (4.0-10.0)
[2024-01-21 12:44] LABS: ALBUMIN 3.9 G/DL (3.2-5.2); ALKALINE PHOSPHATASE 67 U/L (46-116); ALT/SGPT 17 U/L (7.0-40); AST/SGOT 9 U/L (<34); BILIRUBIN,TOTAL 0.5 MG/DL (0.3-1.2); BLOOD UREA NITROGEN 14 MG/DL (9-23); CALCIUM LEVEL 8.7 MG/DL (8.5-10.1); CARBON DIOXIDE LEVEL 26 MMOL/L (20-31); CHLORIDE LEVEL 107 MMOL/L (98-107); CREATININE FOR GFR 0.75 MG/DL (0.70-1.30); GLOMERULAR FILTRATION RATE > 60.0 (>60); GLUCOSE, FASTING 91 MG/DL (60-100); HEMOGLOBIN A1c 5.6 % (4.0-6.0); POTASSIUM SERUM 4.3 MMOL/L (3.5-5.1); SODIUM LEVEL 139 MMOL/L (136-145); TOTAL PROTEIN 7.1 G/DL (5.7-8.2)
[2024-01-21 12:45] LABS: FREE T4 0.97 NG/DL (0.89-1.76); THYROID STIMULATING HORMONE 2.454 uIU/ML (0.55-4.78)
== END ==
LOC: M WUC 08:22
PROVIDERS: ATTEND Physician Assistant
DX: R73.03 Prediabetes (principal); F17.200 Nicotine dependence, unspecified, uncomplicated; K70.0 Alcoholic fatty liver; R79.89 Other specified abnormal findings of blood chemistry

== ENCOUNTER → 2024-03-31 | Outpatient (REF) | payer OTHER | LOC: M SFHCDERM 16:45 | PROVIDERS: ATTEND Nurse Practitioner Family | DX: L02.93 Carbuncle, unspecified (principal) ==

== ENCOUNTER → 2024-03-31 | Outpatient (REF) | payer OTHER | LOC: M SFHCPLAZ 13:53 | PROVIDERS: ATTEND Nurse Practitioner Family | DX: L02.93 Carbuncle, unspecified (principal); Z53.9 Procedure and treatment not carried out, unspecified reason ==

== ENCOUNTER → 2024-08-21 | Outpatient (CLI) | payer OTHER ==
[~2024-08-21] MED LIST changes: +FLUO-365 PO; -FLUO20CA22 PO
== END ==
LOC: M OUTALCOH 07:38
PROVIDERS: ATTEND Psychiatry & Neurology Psychiatry
DX: F10.20 Alcohol dependence, uncomplicated (principal); F17.200 Nicotine dependence, unspecified, uncomplicated

== ENCOUNTER 2024-08-28 12:44 | Outpatient (RCR) | payer OTHER | END 2024-09-11 | LOC: M OUTALCOH 12:44 | PROVIDERS: ATTEND Psychiatry & Neurology Psychiatry | DX: Z03.89 Encounter for observation for other suspected diseases and conditions ruled out (principal); F17.200 Nicotine dependence, unspecified, uncomplicated ==

== ENCOUNTER → 2025-02-06 | Outpatient (CLI) | payer OTHER ==
[2025-02-06 13:46] LABS: BASO # 0.1 10^3/uL (0.0-0.2); BASO % 0.5 % (0.0-1.0); EOS # 0.2 10^3/uL (0.0-0.5); EOS % 2.4 % (0.0-3.0); HEMATOCRIT 52.5 % (42.0-52.0); HEMOGLOBIN 17.7 g/dl (13.5-17.5); LYMPH # 4.4 10^3/uL (1.5-5.0); LYMPH % 43.2 % (24.0-44.0); MEAN CORPUSCULAR HEMOGLOBIN 30.6 pg (27.0-33.0); MEAN CORPUSCULAR HGB CONC 33.7 g/dl (32.0-36.5); MEAN CORPUSCULAR VOLUME 90.7 fl (80.0-96.0); MONO # 0.8 10^3/uL (0.0-0.8); MONO % 8.3 % (2.0-8.0); NEUTROPHILS # 4.6 10^3/uL (1.5-8.5); NEUTROPHILS % 45.3 % (36.0-66.0); PLATELET COUNT, AUTOMATED 239 10^3/uL (150-450); RED BLOOD COUNT 5.79 10^6/uL (4.30-6.10); WHITE BLOOD COUNT 10.1 10^3/uL (4.0-10.0)
[2025-02-06 14:16] LABS: FREE T4 0.95 NG/DL (0.89-1.76); THYROID STIMULATING HORMONE 2.003 uIU/ML (0.55-4.78)
[2025-02-06 14:18] LABS: ALBUMIN 3.9 G/DL (3.2-5.2); ALKALINE PHOSPHATASE 69 U/L (40-129); ALT/SGPT 20 U/L (7.0-40); AST/SGOT 15 U/L (<34); BILIRUBIN,TOTAL 0.4 MG/DL (0.3-1.2); BLOOD UREA NITROGEN 13 MG/DL (9-23); CALCIUM LEVEL 8.8 MG/DL (8.5-10.1); CARBON DIOXIDE LEVEL 26 MMOL/L (20-31); CHLORIDE LEVEL 109 MMOL/L (98-107); CHOLESTEROL LEVEL 180 MG/DL (<200); CHOLESTEROL RISK RATIO 6.76 (<5); CREATININE FOR GFR 0.84 MG/DL (0.70-1.30); GLOMERULAR FILTRATION RATE > 60.0 (>60); GLUCOSE, FASTING 89 MG/DL (60-100); HDL CHOLESTEROL 26.6 MG/DL (>40); LDL CHOLESTEROL 82.2 MG/DL (<100); NON-HDL-C 153.4 MG/DL; POTASSIUM SERUM 4.4 MMOL/L (3.5-5.1); SODIUM LEVEL 142 MMOL/L (136-145); TOTAL PROTEIN 7.3 G/DL (5.7-8.2); TRIGLYCERIDES LEVEL 356 MG/DL (<150)
[2025-02-06 14:20] LABS: HEMOGLOBIN A1c 5.5 % (4.0-6.0)
== END ==
LOC: M WUC 08:06
PROVIDERS: ATTEND Physician Assistant
DX: R73.03 Prediabetes (principal); E66.01 Morbid (severe) obesity due to excess calories; Z68.43 Body mass index [BMI] 50.0-59.9, adult; F17.200 Nicotine dependence, unspecified, uncomplicated; D75.1 Secondary polycythemia; K76.0 Fatty (change of) liver, not elsewhere classified

== ENCOUNTER 2025-03-25 08:48 | Day surgery (SDC) | payer OTHER ==
[~2025-03-25] VITALS: Ht 170.2 cm; Wt 140.7 kg
[2025-03-25] MEDS ORDERED: LIDOCAINE 2% 100MG/5ML SDV (FOR ANES.) As Ordered ONE (10:03)
[2025-03-25] MEDS ORDERED: propofoL 200 MG/20 ML VIAL As Ordered ONE (10:03)
[2025-03-25 10:27] VITALS: TEMP 98.8
[2025-03-25 10:45] VITALS: BP 124/69; O2SAT 94
== END 2025-03-25 11:00 | disposition home or self-care (01) ==
LOC: M OPP 08:48
PROVIDERS: ATTEND Surgery
DX: Z12.11 Encounter for screening for malignant neoplasm of colon (principal); Z12.12 Encounter for screening for malignant neoplasm of rectum; D12.5 Benign neoplasm of sigmoid colon; D12.2 Benign neoplasm of ascending colon; K62.1 Rectal polyp; K57.30 Diverticulosis of large intestine without perforation or abscess without bleeding; K21.9 Gastro-esophageal reflux disease without esophagitis; Z98.0 Intestinal bypass and anastomosis status; K76.0 Fatty (change of) liver, not elsewhere classified; Z90.49 Acquired absence of other specified parts of digestive tract; Z87.19 Personal history of other diseases of the digestive system; G47.30 Sleep apnea, unspecified; F17.210 Nicotine dependence, cigarettes, uncomplicated; Z79.899 Other long term (current) drug therapy